=== PATIENT | male | born 1965 | race Hispanic/Latino ===

== ENCOUNTER 2020-05-29 07:45 | Day surgery (SDC) | payer BC ==
[~2020-05-29] VITALS: Ht 165.1 cm; Wt 73.5 kg
[~2020-05-29 07:45] MED LIST: LIPITOR40 M1 PO; LOSARTAN/HCT1 TA2 PO
[2020-05-29 09:11] VITALS: BP 113/77
== END 2020-05-29 09:25 | disposition home or self-care (01) | DRG 951 ==
LOC: ENDO 07:45
PROVIDERS: ATTEND Surgery
PROC: 0DBL8ZX Excision of Transverse Colon, Via Natural or Artificial Opening Endoscopic, Diagnostic (ICD-10-PCS; principal; 2020-05-29)
DX: Z12.11 Encounter for screening for malignant neoplasm of colon (principal); K63.5 Polyp of colon; I10 Essential (primary) hypertension; F17.210 Nicotine dependence, cigarettes, uncomplicated; Z20.828 Contact with and (suspected) exposure to other viral communicable diseases

== ENCOUNTER 2024-01-31 15:52 | Emergency (ER) | payer BC ==
[~2024-01-31] VITALS: Ht 165.1 cm; Wt 74.8 kg
[2024-01-31] MEDS ORDERED: ACYCLOVIR800 MG PO (17:24)
[2024-01-31] MEDS ORDERED: GABAPENTIN100 MG PO (17:24)
[2024-01-31 17:52] VITALS: BP 116/80
== END 2024-01-31 17:54 | disposition home or self-care (01) | DRG 596 ==
LOC: ED 15:52
DX: B02.9 Zoster without complications (principal); I10 Essential (primary) hypertension; Z72.0 Tobacco use